=== PATIENT | male | born 1985 | race Caucasian/White ===

== ENCOUNTER 2024-01-23 15:42 | Emergency (ER) | payer OTHER ==
[2024-01-23 15:53] VITALS: RESP 18; BMI 25.8
[2024-01-23] MEDS: CYCLOBENZAPRINE HCL 10 MG TABLET (FP) PO ONE (16:27)
[2024-01-23] MEDS ORDERED: LIDOCAINE 4% PATCH TP ONE (16:29)
[2024-01-23] MEDS ORDERED: diazePAM 5 MG TABLET ONE (16:29)
[2024-01-23] MEDS ORDERED: ACETAMINOPHEN 325 MG TABLET (FP) ONE (16:29)
[2024-01-23] MEDS: diazePAM 5 MG TABLET PO ONE (16:33)
[2024-01-23] MEDS: ACETAMINOPHEN 500 MG TABLET (FP) PO ONE (16:33)
[2024-01-23] MEDS: LIDOCAINE 4% PATCH TP ONE (17:20)
[2024-01-23] MEDS ORDERED: KETOROLAC TROMETHAMINE 30 MG/1 ML VIAL ONE (18:14)
[2024-01-23] MEDS: KETOROLAC TROMETHAMINE 30 MG/1 ML VIAL IM ONE (18:18)
[2024-01-23] MEDS ORDERED: METHOCARBAMOL 500 MG TABLET ONE ×2 (18:31→20:31)
[2024-01-23] MEDS: METHOCARBAMOL 500 MG TABLET PO ONE ×2 (18:37→20:35)
[2024-01-23 21:17] VITALS: BP 113/64; PULSE 82; TEMP 98.3
[2024-01-23] MEDS: morphine CARPU-JECT 2 MG/1 ML DISP.SYRIN IM ONE ×2 (21:53→23:38)
[2024-01-23] MEDS: LIDOCAINE PATCH REMOVAL MC SCH (22:06)
[2024-01-23] MEDS ORDERED: morphine CARPU-JECT 2 MG/1 ML DISP.SYRIN IM ONE (22:53)
== END 2024-01-23 23:43 | disposition home or self-care (01) ==
LOC: JER 15:42
PROC: 3E0133Z Introduction of Anti-inflammatory into Subcutaneous Tissue, Percutaneous Approach (ICD-10-PCS; principal; 2024-01-23)
PROC: 3E013NZ Introduction of Analgesics, Hypnotics, Sedatives into Subcutaneous Tissue, Percutaneous Approach (ICD-10-PCS; 2024-01-23)
PROC: 3E013NZ Introduction of Analgesics, Hypnotics, Sedatives into Subcutaneous Tissue, Percutaneous Approach (ICD-10-PCS; 2024-01-23)
DX: M54.50 Low back pain, unspecified (principal); X50.0XXA Overexertion from strenuous movement or load, initial encounter; Y99.0 Civilian activity done for income or pay
CPT/HCPCS: 72131-TC; 99284-25